=== PATIENT | male | born 1985 | race Caucasian/White ===

== ENCOUNTER → 2019-05-19 | Outpatient (CLI) | payer SELFPAY ==
[2019-05-19 17:59] LABS: BASO # 0.1 (0.02-0.10); EOS % 0.6 % (0.0-4.0); HEMOGLOBIN 14.5 g/dL (13.5-18.0); LYMPH# 2.1 (1.50-4.00); MEAN CELL VOLUME 89 fl (78-100); MEAN CORPUSCULAR HEMOGLOBIN 31 pg (27-31); MEAN CORPUSCULAR HGB CONC 35 g/dL (33-37); MEAN PLATELET VOLUME 9.2 fl (7.4-10.4); MONO # 0.5 (0.20-0.80); NEU # 3.6 (1.40-6.50); PLATELET COUNT 242 K/mm3 (130-400); RED BLOOD COUNT 4.71 M/mm3 (4.20-5.60); RED CELL DISTRIBUTION WIDTH 12.9 % (11.5-14.5); WHITE BLOOD COUNT 6.3 K/mm3 (4.8-10.8)
== END ==
LOC: LAB 17:38
PROVIDERS: Nurse Practitioner
DX: M79.671 Pain in right foot (principal)

== ENCOUNTER → 2021-08-16 | Outpatient (CLI) | payer BC | LOC: RAD 12:55 | DX: D17.0 Benign lipomatous neoplasm of skin and subcutaneous tissue of head, face and neck (principal) | CPT/HCPCS: Q9967 ==

== ENCOUNTER 2024-06-03 11:21 | Emergency (ER) | payer BC ==
[~2024-06-03] VITALS: Ht 193 cm; Wt 97.1 kg
[2024-06-03] MEDS ORDERED: NS 1,000 ML IV ONE (11:30)
[2024-06-03 11:48] LABS: BASO # 0.02 K/mm3 (0.02-0.10); EOS # 0.02 K/mm3 (0.04-0.40); EOS % 0.3 % (0.0-4.0); HEMATOCRIT 43.2 % (42.0-52.0); LYMPH# 1.31 K/mm3 (1.50-4.00); MEAN CELL VOLUME 91 fl (78-100); MEAN CORPUSCULAR HEMOGLOBIN 32 pg (27-31); MEAN CORPUSCULAR HGB CONC 35 g/dL (33-37); MONO # 0.39 K/mm3 (0.20-0.80); NEU # 5.07 K/mm3 (1.40-6.50); PLATELET COUNT 209 K/mm3 (130-400); RED BLOOD COUNT 4.74 M/mm3 (4.20-5.60); RED CELL DISTRIBUTION WIDTH 11.9 % (11.5-14.5); WHITE BLOOD COUNT 6.8 K/mm3 (4.8-10.8)
[2024-06-03 11:55] LABS: ALBUMIN 4.5 g/dL (3.5-5.0); SODIUM 136 mmol/L (136-145)
[2024-06-03 11:56] LABS: CALCIUM 8.9 mg/dL (8.3-10.5)
[2024-06-03 11:57] LABS: GLUCOSE 119 mg/dL (75-110); TOTAL PROTEIN 7.2 g/dL (6.4-8.3)
[2024-06-03 11:59] LABS: CARBON DIOXIDE 22 mmol/L (22-29); TOTAL BILIRUBIN 0.6 mg/dL (0.2-1.2)
[2024-06-03 12:03] LABS: AST-SGOT 23 U/L (5-34)
[2024-06-03 12:04] LABS: ALT/SGPT 23 U/L (0-55)
[2024-06-03 12:10] LABS: TROPONIN-I < 0.030 ng/mL (0.00-0.033)
[2024-06-03] MEDS ORDERED: SERTRALINE HYDR25 MG PO (12:38)
[2024-06-03] MEDS ORDERED: XANAX0.25 M1 PO (12:38)
[2024-06-03] MEDS ORDERED: ALPRAZolam 0.5 MG TAB PO ONE (12:45)
[2024-06-03 12:51] VITALS: BP 127/99
== END 2024-06-03 13:01 | disposition home or self-care (01) ==
LOC: ED 11:21
PROVIDERS: Family Medicine
DX: F41.9 Anxiety disorder, unspecified (principal); M10.9 Gout, unspecified; F17.220 Nicotine dependence, chewing tobacco, uncomplicated
CPT/HCPCS: J7030